=== PATIENT | female | born 1980 | race Caucasian/White ===

== ENCOUNTER 2019-03-26 16:27 | Emergency (ER) | payer SELFPAY ==
[2019-03-26] MEDS ORDERED: MORPHINE 4 MG/ML 1ML VIAL/SYRINGE (J2270) IM ONE (16:45)
[2019-03-26] MEDS ORDERED: ACETAMINOPHEN 325 MG TAB PO ONE (17:15)
[2019-03-26] MEDS ORDERED: PERCOCET 5MG/325MG TAB PO ONE (17:30)
[2019-03-26 18:52] VITALS: BP 140/99
--- NOTE | 2019-03-27 09:35 | REP ---
Right ankle series: Four views. History: Trauma. Lateral pain. Findings: Four views of the right ankle demonstrate moderate soft tissue swelling about the lateral malleolus. There is a well corticated bone fragment adjacent to the lateral malleolus. This appears old. However, there is a acute appearing cortical disruption of the lateral malleolus adjacent to this. Plantar calcaneal spurring is noted. No tibial fracture is appreciated. Impression: Distal fibular fracture noted nondisplaced. Ankle mortise is intact. No tibial fracture is seen. There is lateral soft tissue swelling. Electronically Signed by Nabil Gregorio MD 03/27/2019 09:26 A
== END 2019-03-26 18:56 | disposition home or self-care (01) ==
LOC: EDBD 16:27 → M ED 16:27
DX: S82.64XA Nondisplaced fracture of lateral malleolus of right fibula, initial encounter for closed fracture (principal); X50.1XXA Overexertion from prolonged static or awkward postures, initial encounter; Y92.89 Other specified places as the place of occurrence of the external cause; Y93.9 Activity, unspecified; Y99.9 Unspecified external cause status; Z91.89 Other specified personal risk factors, not elsewhere classified